=== PATIENT | male | born 1990 | race Caucasian/White ===

== ENCOUNTER 2019-12-17 09:57 | Emergency (ER) | payer OTHER ==
[~2019-12-17] VITALS: Ht 172.7 cm; Wt 81.7 kg
--- NOTE | ~2019-12-17 | EKG ---
[place] [address] ELECTROCARDIOGRAM REPORT Name: LACEYPATIENCE Gt Room: [facility]#: [id number] Admission: Attend Phys: Discharge: Date of : 86 Date of Service: 12/17/19 1001 Report #: [id number] THIS REPORT FOR: cc: Kelly Benitez MD FAM - No family physician/PCP Luís Staley MD ~ THIS REPORT FOR: //name// [facility] ED Test Date: 2019-12-17 Test Time: 10:01:43 Pat Name: PATIENCE RAHMAN Department: Room: Gender: M Card Filer: [facility] : 1990 Requested By: Viral Rendon Order Number: [id number] MD: Measurements Intervals [place] Rate: 66 P: 28 PA: 133 QRS: 75 QRSD: 101 T: 56 QT: 398 QTc: 417 Interpretive Statements Sinus rhythm Baseline wander in lead(s) V1,V2 No previous ECG available for comparison [email or web address] By: 100 1001 Epiphany Epiphany, /EPI
[2019-12-17 10:23] LABS: ABSOLUTE BASOPHILS 0.1 thou/uL (0.0-0.2); ABSOLUTE EOSINOPHILS 0.2 thou/uL (0.0-0.7); ABSOLUTE MONOCYTES 0.4 thou/uL (0.0-1.2); ABSOLUTE NEUTROPHILS 5.7 thou/uL (1.6-8.1); BASOPHILS 0.6 %; EOSINOPHILS 2.1 %; HEMOGLOBIN 15.9 gm/dL (14.0-18.0); LYMPHOCYTES 24.2 %; MCH 29.8 pg (26.0-34.0); MCHC 33.8 g/dL (28.0-37.0); MCV 87.9 fL (80.0-100.0); MONOCYTES 4.8 %; MPV 8.5 fl. (7.2-11.1); NUCLEATED RBCS 0 /100WBC; PLATELET COUNT* 236 thou/uL (150-400); POLYS 68.3 %; RBC 5.35 mil/uL (4.50-6.00); RDW-CV 13.6 % (10.5-14.5); WBC 8.4 thou/uL (4.0-11.0)
[2019-12-17 10:41] LABS: ANION GAP 6 mmol/L (7-16); BUN 9 mg/dL (7-18); CALCIUM 8.2 mg/dL (8.5-10.1); CHLORIDE 107 mmol/L (98-107); CO2 28 mmol/L (21-32); GLUCOSE 109 mg/dL (70-99); POTASSIUM 4.2 mmol/L (3.5-5.1); SODIUM 141 mmol/L (136-145)
[2019-12-17 10:47] LABS: ALBUMIN 3.6 g/dL (3.4-5.0); ALKALINE PHOSPHATASE 47 U/L (46-116); CK-MB MASS < 0.5 ng/mL (<0.5-3.6); LIPASE 132 U/L (73-393); MAGNESIUM 1.9 mg/dL (1.8-2.4); NT-PRO BRAIN NAT PEPTIDE 7 pg/mL (<300); SGOT 15 U/L (15-37); SGPT 30 U/L (30-65); TOTAL BILIRUBIN 0.5 mg/dL (<0.1-1.0); TOTAL PROTEIN 6.3 g/dL (6.4-8.2)
[2019-12-17 10:58] LABS: APTT 26.5 Seconds (25.0-31.3); PROTIME 10.7 Seconds (9.20-11.50)
[2019-12-17 11:37] VITALS: BP 109/84
== END 2019-12-17 11:38 | disposition home or self-care (01) ==
LOC: M.ERS 09:57
PROVIDERS: Family Medicine
DX: R07.89 Other chest pain (principal); F17.200 Nicotine dependence, unspecified, uncomplicated

== ENCOUNTER 2021-02-24 15:07 | Emergency (ER) | payer OTHER ==
[~2021-02-24] VITALS: Ht 172.7 cm; Wt 77.1 kg
[2021-02-24] MEDS ORDERED: HYDROCODON-ACE1 EAC7 PO ×2 (17:07→17:11)
[2021-02-24] MEDS ORDERED: IBUPROFEN 800800 M1 PO (17:13)
[2021-02-24 17:21] VITALS: BP 130/85
== END 2021-02-24 17:22 | disposition home or self-care (01) ==
LOC: M.ERS 15:07
DX: S22.41XA Multiple fractures of ribs, right side, initial encounter for closed fracture (principal); W22.8XXA Striking against or struck by other objects, initial encounter; Y93.89 Activity, other specified; Y92.89 Other specified places as the place of occurrence of the external cause; Y99.8 Other external cause status

== ENCOUNTER 2021-11-29 08:22 | Emergency (ER) | payer OTHER ==
[~2021-11-29] VITALS: Ht 175.3 cm; Wt 72.6 kg
[~2021-11-29 08:22] MED LIST: HYDROCODON-ACE1 EAC7 PO; IBUPROFEN 800800 M1 PO
[2021-11-29 09:31] LABS: INFLUENZA A ANTIGEN Negative (Negative); INFLUENZA B ANTIGEN Negative (Negative)
[2021-11-29] MEDS ORDERED: TESSALON PERLE100 MG PO (09:37)
[2021-11-29 10:50] VITALS: BP 142/81
== END 2021-11-29 10:50 | disposition home or self-care (01) ==
LOC: M.ERS 08:22
PROVIDERS: Emergency Medicine Emergency Medical Services
DX: U07.1 COVID-19 (principal)

== ENCOUNTER 2021-12-30 08:35 | Emergency (ER) | payer OTHER ==
[~2021-12-30] VITALS: Ht 175.3 cm; Wt 74.8 kg
[~2021-12-30 08:35] MED LIST changes: +TESSALON PERLE100 MG PO
[2021-12-30 08:50] VITALS: BP 125/68
[2021-12-30] MEDS ORDERED: DEXAMETHASONE 44 M1 PO (09:23)
[2021-12-30] MEDS ORDERED: ZPAK PO (09:23)
== END 2021-12-30 09:28 | disposition home or self-care (01) ==
LOC: M.ERS 08:35
DX: J06.9 Acute upper respiratory infection, unspecified (principal)